=== PATIENT | female | born 1990 | race Two or more races ===

== ENCOUNTER 2022-12-27 17:05 | Emergency (ER) | payer OTHER, MEDICAID ==
[2022-12-27 17:58] LABS: BASOPHILS PERCENT AUTO 0.3 % (0.2-1.5); EOSINOPHILS PERCENT AUTO 0.1 % (0.6-8.1); HEMATOCRIT 43.4 % (34.2-48.2); HEMOGLOBIN 14.5 g/dL (11.4-15.5); LYMPHOCYTES ABSOLUTE AUTO 0.8 x10-3/uL (1.0-4.4); LYMPHOCYTES PERCENT AUTO 16.4 % (18.4-52.1); MEAN CORPUSCULAR HEMOGLOBIN 26.3 pg (23.9-33.9); MEAN CORPUSCULAR HGB CONC 33.5 g/dL (31.9-34.8); MEAN CORPUSCULAR VOLUME 78.5 fL (76.7-100.5); MEAN PLATELET VOLUME 9.8 fL (7.1-12.4); MONOCYTES ABSOLUTE AUTO 0.4 x10-3/uL (0.3-1.0); MONOCYTES PERCENT AUTO 8.7 % (4.4-15.7); NEUTROPHILS ABSOLUTE AUTO 3.8 x10-3/uL (1.5-6.3); NEUTROPHILS PERCENT AUTO 74.5 % (30.8-76.2); PLATELET COUNT,PLT 110 x10(3)uL (151-488); RED BLOOD CELL COUNT 5.53 x10(6)uL (3.60-5.20); RED CELL DISTRIBUTION WIDTH 15.6 % (12.3-16.5); WHITE BLOOD CELL COUNT,WBC 5.1 x10-3/uL (3.0-10.3)
[2022-12-27] MEDS: Sodium Chloride 0.9% 1,000 ML IV ONE (18:00)
[2022-12-27 18:01] LABS: C-REACTIVE PROTEIN 1.9 mg/dL (0.5-0.9)
[2022-12-27 18:07] LABS: A/G RATIO 0.8; ALANINE AMINOTRANSFERASE,ALT 81 U/L (12-36); ALBUMIN 4.1 g/dL (3.5-5.2); ALKALINE PHOSPHATASE 104 IU/L (56-112); ASPARTATE AMNIOTRANSFERASE,AST 91 IU/L (5-25); BILIRUBIN TOTAL 1.5 mg/dL (0.1-1.3); BLOOD UREA NITROGEN,BUN 15 mg/dL (7-18); BUN/CREATININE RATIO 13.6 (9-20); CARBON DIOXIDE,CO2 31 mmol/L (21-32); CREATININE 1.1 mg/dL (0.55-1.02); ESTIMATED GFR 68 mL/min (>60); GLUCOSE RANDOM 123 mg/dL (80-116); MAGNESIUM 1.8 mg/dL (1.8-2.5); POTASSIUM,K 3.6 mmol/L (3.5-5.3); PROTEIN TOTAL,TP 9.2 g/dL (6.0-8.0); SODIUM,NA 122 mmol/L (135-145)
[2022-12-27] MEDS: Ondansetron 4 MG/2 ML SDV IVPUSH ONE (18:08)
[2022-12-27 18:09] LABS: CHLORIDE,CL 85 mmol/L (100-110)
[2022-12-27] MEDS: Ketorolac 30 MG/ML SDV IVPUSH ONE (18:09)
[2022-12-27] MEDS: LORazepam 2 MG/ML SDV IVPUSH ONE (18:31)
[2022-12-27] MEDS: Sodium Chloride 0.9% 1,000 ML IV SCH (19:07)
[2022-12-27 20:42] LABS: BILIRUBIN,URINE NEGATIVE (NEGATIVE); GLUCOSE,URINE NORMAL (NORMAL); KETONES,URINE 50 mg/dL (NEGATIVE); LEUKOCYTE ESTERASE,URINE NEGATIVE (NEGATIVE); NITRITE,URINE NEGATIVE (NEGATIVE); OCCULT BLOOD,URINE MODERATE (NEGATIVE); PROTEIN,URINE 30 mg/dL (NEGATIVE); UROBILINOGEN,URINE NORMAL (NEGATIVE)
[2022-12-27 20:50] LABS: APPEARANCE,URINE CLEAR (CLEAR); COLOR,URINE ORANGE (YELLOW)
[2022-12-27 20:51] LABS: AMPHETAMINES SCREEN, URINE NEGATIVE (NEGATIVE); BACTERIA,URINE FEW (NS); BARBITURATE SCREEN,URINE NEGATIVE (NEGATIVE); BENZODIAZEPINES SCREEN,URINE NEGATIVE (NEGATIVE); BUPRENORPHINE SCREEN,URINE NEGATIVE (NEGATIVE); HYALINE CASTS,URINE FEW (NS); METHADONE SCREEN, URINE NEGATIVE (NEGATIVE); METHAMPHETAMINE SCREEN, URINE NEGATIVE (NEGATIVE); OXYCODONE SCREEN,URINE NEGATIVE (NEGATIVE); PROPOXYPHENE SCREEN,URINE NEGATIVE (NEGATIVE); SQUAMOUS EPITHELIAL CELLS,UR FEW (NS,R,O); THC SCREEN,URINE POSITIVE (NEGATIVE); WBC,URINE 0-5 (0-5)
== END 2022-12-27 21:38 | disposition home or self-care (01) ==
LOC: FB.ED 17:05
DX: F10.139 Alcohol abuse with withdrawal, unspecified (principal); E87.1 Hypo-osmolality and hyponatremia; E86.0 Dehydration; D69.6 Thrombocytopenia, unspecified; R79.89 Other specified abnormal findings of blood chemistry; R82.4 Acetonuria; Z88.1 Allergy status to other antibiotic agents; Y90.0 Blood alcohol level of less than 20 mg/100 ml
CPT/HCPCS: 36415; 80053; 80307; 81001; 83690; 83735; 85025; 86140; 96361; 96374; 96375; 99284-25; J1885; J2060; J2405; J7030

== ENCOUNTER 2022-12-28 15:46 | Emergency (ER) | payer OTHER, MEDICAID ==
[2022-12-28] MEDS ORDERED: Ondansetron 4 MG Tab.DIS PO ONE (15:47)
[2022-12-28] MEDS: Alum Hydroxide/Mag Hydroxide 30 ML, Lidocaine 2% 15 ML PO ONE ×2 (16:51)
[2022-12-28] MEDS: Sodium Chloride 0.9% 1,000 ML IV ONE (16:51)
[2022-12-28] MEDS: Ondansetron 4 MG/2 ML SDV IVPUSH ONE (16:51)
[2022-12-28 17:11] LABS: BASOPHILS PERCENT AUTO 0.3 % (0.2-1.5); EOSINOPHILS PERCENT AUTO 0.4 % (0.6-8.1); HEMATOCRIT 39.2 % (34.2-48.2); HEMOGLOBIN 12.9 g/dL (11.4-15.5); LYMPHOCYTES ABSOLUTE AUTO 1.4 x10-3/uL (1.0-4.4); MEAN CORPUSCULAR HEMOGLOBIN 26.2 pg (23.9-33.9); MEAN CORPUSCULAR VOLUME 79.5 fL (76.7-100.5); MEAN PLATELET VOLUME 10.6 fL (7.1-12.4); MONOCYTES ABSOLUTE AUTO 0.3 x10-3/uL (0.3-1.0); MONOCYTES PERCENT AUTO 5.8 % (4.4-15.7); NEUTROPHILS ABSOLUTE AUTO 3.7 x10-3/uL (1.5-6.3); NEUTROPHILS PERCENT AUTO 67.5 % (30.8-76.2); PLATELET COUNT,PLT 82 x10(3)uL (151-488); RED BLOOD CELL COUNT 4.93 x10(6)uL (3.60-5.20); RED CELL DISTRIBUTION WIDTH 15.6 % (12.3-16.5); WHITE BLOOD CELL COUNT,WBC 5.4 x10-3/uL (3.0-10.3)
[2022-12-28] MEDS: Potassium Chloride 20 MEQ Tab.ER PO ONE (17:34)
[2022-12-28 17:36] LABS: SODIUM,NA 136 mmol/L (135-145)
[2022-12-28 17:37] LABS: BLOOD UREA NITROGEN,BUN 18 mg/dL (7-18); BUN/CREATININE RATIO 16.4 (9-20); CALCIUM 8.9 mg/dL (8.6-10.2); CARBON DIOXIDE,CO2 28 mmol/L (21-32); CHLORIDE,CL 98 mmol/L (100-110); CREATININE 1.1 mg/dL (0.55-1.02); EST CRCL DRUG DOSING (CG) 80.54 mL/min; ESTIMATED GFR 68 mL/min (>60); GLUCOSE RANDOM 92 mg/dL (80-116); POTASSIUM,K 2.8 mmol/L (3.5-5.3)
[2022-12-28 17:58] LABS: BILIRUBIN,URINE NEGATIVE (NEGATIVE); GLUCOSE,URINE NORMAL (NORMAL); KETONES,URINE 15 mg/dL (NEGATIVE); LEUKOCYTE ESTERASE,URINE NEGATIVE (NEGATIVE); NITRITE,URINE NEGATIVE (NEGATIVE); OCCULT BLOOD,URINE MODERATE (NEGATIVE); PROTEIN,URINE TRACE mg/dL (NEGATIVE); UROBILINOGEN,URINE NORMAL (NEGATIVE)
[2022-12-28 18:00] LABS: APPEARANCE,URINE CLEAR (CLEAR); BACTERIA,URINE RARE (NS); COLOR,URINE YELLOW (YELLOW); RBC,URINE 0-5 (0-5); SQUAMOUS EPITHELIAL CELLS,UR OCCASIONAL (NS,R,O); WBC,URINE 0-5 (0-5)
[2022-12-28 18:01] LABS: A/G RATIO 0.8; ALANINE AMINOTRANSFERASE,ALT 57 U/L (12-36); ALBUMIN 3.3 g/dL (3.5-5.2); ALKALINE PHOSPHATASE 101 IU/L (56-112); ASPARTATE AMNIOTRANSFERASE,AST 81 IU/L (5-25); BILIRUBIN TOTAL 0.6 mg/dL (0.1-1.3); PROTEIN TOTAL,TP 7.5 g/dL (6.0-8.0)
[2022-12-28] MEDS: Azithromycin 500 MG Tab PO ONE (19:06)
== END 2022-12-28 19:18 | disposition home or self-care (01) ==
LOC: FB.ED 15:46
DX: R11.2 Nausea with vomiting, unspecified (principal); F10.239 Alcohol dependence with withdrawal, unspecified; E87.6 Hypokalemia; D69.6 Thrombocytopenia, unspecified; R79.82 Elevated C-reactive protein (CRP); R79.89 Other specified abnormal findings of blood chemistry; Z88.1 Allergy status to other antibiotic agents
CPT/HCPCS: 36415; 71046; 80053; 81001; 83690; 85025; 86140; 96361; 96374; 99284-25; A9270-GY; J2405; J7030; Q0162

== ENCOUNTER 2022-12-30 07:32 | Emergency (ER) | payer OTHER, MEDICAID ==
[2022-12-30] MEDS ORDERED: Prochlorperazine 10 MG/2 ML SDV IVPUSH ONE (07:41)
[2022-12-30] MEDS ORDERED: Sodium Chloride 0.9% 1,000 ML IV SCH (07:45)
[2022-12-30] MEDS ORDERED: LORazepam 2 MG/ML SDV IVPUSH ONE (08:10)
[2022-12-30 08:27] LABS: BLOOD UREA NITROGEN,BUN 12 mg/dL (7-18); BUN/CREATININE RATIO 10.9 (9-20); CALCIUM 8.5 mg/dL (8.6-10.2); CARBON DIOXIDE,CO2 27 mmol/L (21-32); CHLORIDE,CL 103 mmol/L (100-110); CREATININE 1.1 mg/dL (0.55-1.02); ESTIMATED GFR 68 mL/min (>60); GLUCOSE RANDOM 117 mg/dL (80-116); POTASSIUM,K 3.5 mmol/L (3.5-5.3); SODIUM,NA 139 mmol/L (135-145)
[2022-12-30 08:28] LABS: BASOPHILS PERCENT AUTO 0.2 % (0.2-1.5); EOSINOPHILS ABSOLUTE AUTO 0.1 x10-3/uL (0.0-0.8); EOSINOPHILS PERCENT AUTO 0.8 % (0.6-8.1); HEMATOCRIT 32.3 % (34.2-48.2); HEMOGLOBIN 10.5 g/dL (11.4-15.5); LYMPHOCYTES ABSOLUTE AUTO 1.1 x10-3/uL (1.0-4.4); LYMPHOCYTES PERCENT AUTO 15.6 % (18.4-52.1); MEAN CORPUSCULAR HEMOGLOBIN 26.5 pg (23.9-33.9); MEAN CORPUSCULAR HGB CONC 32.6 g/dL (31.9-34.8); MEAN CORPUSCULAR VOLUME 81.2 fL (76.7-100.5); MEAN PLATELET VOLUME 10.8 fL (7.1-12.4); MONOCYTES ABSOLUTE AUTO 0.3 x10-3/uL (0.3-1.0); MONOCYTES PERCENT AUTO 4.5 % (4.4-15.7); NEUTROPHILS ABSOLUTE AUTO 5.8 x10-3/uL (1.5-6.3); NEUTROPHILS PERCENT AUTO 78.9 % (30.8-76.2); RED BLOOD CELL COUNT 3.98 x10(6)uL (3.60-5.20); RED CELL DISTRIBUTION WIDTH 15.5 % (12.3-16.5); WHITE BLOOD CELL COUNT,WBC 7.3 x10-3/uL (3.0-10.3)
[2022-12-30 08:31] LABS: LIPASE 56 U/L (16-77)
[2022-12-30 08:35] LABS: PLATELET COUNT,PLT 68 x10(3)uL (151-488)
[2022-12-30 08:37] LABS: ETHANOL BLOOD MEDICAL < 0.03 % (<0.03)
[2022-12-30 08:39] LABS: A/G RATIO 0.8; ALANINE AMINOTRANSFERASE,ALT 52 U/L (12-36); ALKALINE PHOSPHATASE 104 IU/L (56-112); AMYLASE 49 U/L (25-115); ASPARTATE AMNIOTRANSFERASE,AST 65 IU/L (5-25); BILIRUBIN TOTAL 0.4 mg/dL (0.1-1.3); MAGNESIUM 1.3 mg/dL (1.8-2.5); PHOSPHORUS 1.7 mg/dL (2.6-4.6); PROTEIN TOTAL,TP 6.8 g/dL (6.0-8.0)
[2022-12-30] MEDS: Sodium Chloride 0.9% 10 ML Syringe FLUSH PRN ×2 (08:40→08:42)
[2022-12-30] MEDS ORDERED: Magnesium Sulfate/Water 4 GM in Premix Bag 1 BAG IV ONE (09:18)
[2022-12-30] MEDS ORDERED: Magnesium Sulfate/Water 50 ML ONE (09:25)
[2022-12-30] MEDS ORDERED: Sodium Chloride 0.9% 1,000 ML IV ONE (10:26)
[2022-12-30] MEDS ORDERED: Diazepam 5 MG Tab PO ONE (10:40)
[2022-12-30] MEDS ORDERED: Metoprolol Tartrate 25 MG Tab PO ONE (11:31)
== END 2022-12-30 13:35 | disposition home or self-care (01) ==
LOC: FB.ED 07:32
DX: E83.42 Hypomagnesemia (principal); D64.9 Anemia, unspecified; F10.239 Alcohol dependence with withdrawal, unspecified; Z88.1 Allergy status to other antibiotic agents; Z79.899 Other long term (current) drug therapy
CPT/HCPCS: 36415; 80053; 80307; 82150; 83690; 83735; 84100; 85025; 96361; 96365; 96366; 96375; 99284-25; A9270-GY; J0780; J2060; J3475; J3490; J7030

== ENCOUNTER 2023-01-17 12:17 | Emergency (ER) | payer OTHER, MEDICAID | END 2023-01-17 12:53 | LOC: FB.ED 12:17 | DX: F10.129 Alcohol abuse with intoxication, unspecified (principal); Z88.1 Allergy status to other antibiotic agents | CPT/HCPCS: 99284 ==

== ENCOUNTER 2023-01-18 00:24 | Emergency (ER) | payer OTHER, MEDICAID ==
[2023-01-18] MEDS ORDERED: Sodium Chloride 0.9% 1,000 ML IV ONE (01:01)
[2023-01-18] MEDS ORDERED: Sodium Chloride 0.9% 10 ML Syringe FLUSH PRN (01:01)
[2023-01-18] MEDS ORDERED: Ondansetron 4 MG/2 ML SDV IVPUSH ONE ×2 (01:02→04:00)
[2023-01-18] MEDS ORDERED: LORazepam 2 MG/ML SDV IVPUSH ONE ×2 (01:17→04:00)
[2023-01-18] MEDS ORDERED: Pantoprazole 40 MG Vial IVPUSH ONE (01:19)
[2023-01-18 01:25] LABS: BLOOD UREA NITROGEN,BUN 8 mg/dL (7-18); BUN/CREATININE RATIO 11.4 (9-20); CALCIUM 8.7 mg/dL (8.6-10.2); CARBON DIOXIDE,CO2 22 mmol/L (21-32); CHLORIDE,CL 100 mmol/L (100-110); CREATININE 0.7 mg/dL (0.55-1.02); ESTIMATED GFR 116 mL/min (>60); GLUCOSE RANDOM 87 mg/dL (80-116); POTASSIUM,K 4.7 mmol/L (3.5-5.3); SODIUM,NA 137 mmol/L (135-145)
[2023-01-18 01:30] LABS: BASOPHILS PERCENT AUTO 0.4 % (0.2-1.5); EOSINOPHILS ABSOLUTE AUTO 0.1 x10-3/uL (0.0-0.8); EOSINOPHILS PERCENT AUTO 1.6 % (0.6-8.1); HEMATOCRIT 37.7 % (34.2-48.2); HEMOGLOBIN 12.2 g/dL (11.4-15.5); LYMPHOCYTES ABSOLUTE AUTO 2.3 x10-3/uL (1.0-4.4); LYMPHOCYTES PERCENT AUTO 53.2 % (18.4-52.1); MEAN CORPUSCULAR HEMOGLOBIN 25.4 pg (23.9-33.9); MEAN CORPUSCULAR HGB CONC 32.4 g/dL (31.9-34.8); MEAN CORPUSCULAR VOLUME 78.3 fL (76.7-100.5); MEAN PLATELET VOLUME 9.7 fL (7.1-12.4); MONOCYTES ABSOLUTE AUTO 0.4 x10-3/uL (0.3-1.0); MONOCYTES PERCENT AUTO 8.8 % (4.4-15.7); NEUTROPHILS ABSOLUTE AUTO 1.5 x10-3/uL (1.5-6.3); PLATELET COUNT,PLT 359 x10(3)uL (151-488); RED BLOOD CELL COUNT 4.81 x10(6)uL (3.60-5.20); RED CELL DISTRIBUTION WIDTH 16.7 % (12.3-16.5); WHITE BLOOD CELL COUNT,WBC 4.3 x10-3/uL (3.0-10.3)
[2023-01-18 01:31] LABS: A/G RATIO 0.8; ALANINE AMINOTRANSFERASE,ALT 22 U/L (12-36); ALBUMIN 3.6 g/dL (3.5-5.2); ALKALINE PHOSPHATASE 83 IU/L (56-112); ASPARTATE AMNIOTRANSFERASE,AST 43 IU/L (5-25); BILIRUBIN TOTAL 0.4 mg/dL (0.1-1.3); MAGNESIUM 1.6 mg/dL (1.8-2.5); PROTEIN TOTAL,TP 8.4 g/dL (6.0-8.0)
[2023-01-18] MEDS ORDERED: Magnesium Oxide 400 MG Tab PO ONE (01:58)
[2023-01-18] MEDS ORDERED: Multivitamin Tab PO ONE (02:00)
[2023-01-18] MEDS ORDERED: Thiamine 200 MG/2 ML MDV IVPUSH ONE (02:00)
[2023-01-18 03:32] LABS: BILIRUBIN,URINE NEGATIVE (NEGATIVE); GLUCOSE,URINE NORMAL (NORMAL); KETONES,URINE 15 mg/dL (NEGATIVE); LEUKOCYTE ESTERASE,URINE NEGATIVE (NEGATIVE); NITRITE,URINE NEGATIVE (NEGATIVE); OCCULT BLOOD,URINE NEGATIVE (NEGATIVE); PROTEIN,URINE NEGATIVE (NEGATIVE); UROBILINOGEN,URINE NORMAL (NEGATIVE)
[2023-01-18 03:38] LABS: APPEARANCE,URINE CLEAR (CLEAR); COLOR,URINE YELLOW (YELLOW); RBC,URINE 0-5 (0-5)
[2023-01-18 03:39] LABS: AMPHETAMINES SCREEN, URINE NEGATIVE (NEGATIVE); BACTERIA,URINE FEW (NS); BARBITURATE SCREEN,URINE POSITIVE (NEGATIVE); BENZODIAZEPINES SCREEN,URINE POSITIVE (NEGATIVE); METHADONE SCREEN, URINE NEGATIVE (NEGATIVE); METHAMPHETAMINE SCREEN, URINE NEGATIVE (NEGATIVE); OXYCODONE SCREEN,URINE NEGATIVE (NEGATIVE); PROPOXYPHENE SCREEN,URINE NEGATIVE (NEGATIVE); SQUAMOUS EPITHELIAL CELLS,UR MODERATE (NS,R,O); THC SCREEN,URINE POSITIVE (NEGATIVE); WBC,URINE 0-5 (0-5)
[2023-01-18 03:40] LABS: BUPRENORPHINE SCREEN,URINE NEGATIVE (NEGATIVE)
== END 2023-01-18 04:36 | disposition home or self-care (01) ==
LOC: FB.ED 00:24
DX: K29.20 Alcoholic gastritis without bleeding (principal); F10.132 Alcohol abuse with withdrawal with perceptual disturbance; R11.2 Nausea with vomiting, unspecified; E86.0 Dehydration; E83.42 Hypomagnesemia; Z88.1 Allergy status to other antibiotic agents
CPT/HCPCS: 36415; 80053; 80307; 81001; 81025; 83690; 83735; 85025; 96361; 96374; 96375; 96376; 99284; A9270; C9113; J2060; J2405; J3411; J7030